=== PATIENT | female | born 1985 | race African-American/Black ===

== ENCOUNTER 2016-09-24 08:26 | Emergency (ER) | payer MEDICAID, OTHER ==
[2016-09-24] MEDS ORDERED: NS 1000 ML 1,000 ML IV ONE ×2 (08:35→09:42)
[2016-09-24] MEDS ORDERED: ZOFRAN INJ 4 MG VIAL IVP ONE (08:35)
[2016-09-24] MEDS ORDERED: NS 1000 ML 1,000 ML ONE ×2 (08:36→09:42)
[2016-09-24 08:37] VITALS: BP 136/83; BMI 22.1
[2016-09-24] MEDS ORDERED: ZOFRAN INJ 4 MG VIAL ONE (08:38)
--- NOTE | 2016-09-24 08:39 | DR.NAUSEAF ---
HPI - Time Seen Time seen: 08:35 - Primary Care Physician Primary Care Physician: AMY - Complaints Chief Complaint Doctors Comments: Patient reports that her child had similar symptoms few days ago. Patients LMP 07/10/16. Patient states that two days ago had cough,chills, headache. Yesterday had three diarrheal stools. associated with vomiting. Temp low grade. Chief Complaint:: PT. C/O N/V/D X 2 DAYS. PT. IS 14 WEEKS AND IS UNDER THE CARE OF DR. REYES. - Source History Provided: Patient - Mode of Arrival Mode of Arrival: Ambulatory - Timing Onset of Chief Complaint: 09/22/16 PMH - PMH Past Medical History: No Past Medical History: Anemia Past Surgical History: Yes Surgical History: Cholecystectomy - Family History History of Family Medical Conditions: No - Social History Does patient currently use any type of tobacco product: No Have you used tobacco products in the last 12 months: No Type of Tobacco Use: None Does any household member use tobacco: No Alcohol Use: None Do you use any recreational Drugs:: No Lives With: Family Lives Where: Home - infectious screening In the last 2 months have you had wt loss of >10#?: NO Have you had fever, night sweats or hemotysis?: No Have you traveled outside the country in the last 6 months?: No Isolation: Standard ROS - Review of Systems Constitutional: No Symptoms Reported Eyes: No Symptoms Reported ENTM: No Symptoms Reported Respiratoy: No Symptoms Reported Cardiovascular: No Symptoms Reported Gastrointestinal/Abdominal: Diarrhea, Nausea, Vomiting Genitourinary: No Symptoms Reported Neurological: No Symptoms Reported Musculoskeletal: No Symptoms Reported Integumentary: No Symptoms Reported Hematologic/Lymphatic: No Symptoms Reported Endocrine: No Symptoms Reported Psychiatric: No Symptoms Reported All Other Systems: Reviewed and Negative PE - Vital Signs Vitals: Temperature 97.8 F Pulse Rate 123 Respiratory Rate 20 Blood Pressure [Right Arm] 121/78 Blood Pressure [Left Arm] 127/75 Blood Pressure [Standing] 132/86 Blood Pressure [Sitting] 123/82 Blood Pressure [Lying] 127/83 Blood Pressure 136/83 O2 Sat by Pulse Oximetry 98 - General Limitations: No Limitations General Appearance: Alert - Head Head Exam: Normal Inspection, Atraumatic - Eyes Eye exam: Normal Appearance, PERRL, EOMI - ENT ENT Exam: Normal Exam - Neck Neck Exam: Normal Inspection, Full ROM - Chest Chest Inspection: Normal Inspection - Respiratory Respiratory Exam: Normal Lung Sounds Bilat Respiratory Exam: Bilateral Clear to Auscultation - Cardiovascular Cardiovascular Exam: Regular Rate, Normal Rhythm - Abdominal Exam Abdominal Exam: Distention - Rectal Rectal Exam: Deferred - External Exam: Female: Deferred : Speculum Exam (Female): Deferred : Bimanual Exam (female): Deferred - Extremities Extremities Exam: Normal Inspection. negative: Normal Capillary Refill - Back Back Exam: Normal Inspection - Neurologic Neurological Exam: Alert, Oriented X3, CN II-XII Intact - Psychiatric Psychiatric Exam: Normal Affect - Skin Skin Exam: Warm, Dry, Intact Course - Reevaluation 1st: Improved ROR - Labs Reviewed Laboratory Results Reviewed?: Yes (Strep negative, Influenze pending) Result Diagrams: 09/24/16 08:45 09/24/16 08:45 Laboratory: WBC 7.0 X10^3/uL (3.6-10.0) 09/24/16 08:45 RBC 4.71 X10^6/uL (3.5-5.4) 09/24/16 08:45 Hgb 14.3 g/dL (12.0-16.0) 09/24/16 08:45 Hct 40.6 % (36.0-47.0) 09/24/16 08:45 MCV 86.0 fL (80.0-100.0) 09/24/16 08:45 MCH 30.3 pg (27.0-34.0) 09/24/16 08:45 MCHC 35.3 g/dL (33.0-35.0) H 09/24/16 08:45 RDW 12.2 % (11.6-16.5) 09/24/16 08:45 Plt Count 250 X10^3/uL (150.0-450.0) 09/24/16 08:45 MPV 7.3 fL (7.4-11.0) L 09/24/16 08:45 Neut % 74.1 % (42.0-75.0) 09/24/16 08:45 Lymph % 19.3 % (21.0-51.0) L 09/24/16 08:45 Carbon % 5.5 % (0.0-13.0) 09/24/16 08:45 Eos % 0.4 % (0.9-2.9) L 09/24/16 08:45 Baso % 0.7 % (0.2-1.0) 09/24/16 08:45 Neut # 5.2 x10^3/uL (2.2-4.8) H 09/24/16 08:45 Lymph # 1.4 X10^3/uL (1.3-2.9) 09/24/16 08:45 Carbon # 0.4 x10^3/uL (0.3-0.8) 09/24/16 08:45 Eos # 0.0 x10^3/uL (0.0-0.2) 09/24/16 08:45 Baso # 0.0 X10^3/uL (0.0-0.1) 09/24/16 08:45 Absolute Nucleated RBC 0.0 /100WBC 09/24/16 08:45 Sodium 141 mmol/L (136-145) 09/24/16 08:45 Corrected Sodium TNP 09/24/16 08:45 Potassium 3.6 mmol/L (3.5-5.1) 09/24/16 08:45 Chloride 103 mmol/L (98-107) 09/24/16 08:45 Carbon Dioxide 24.6 mmol/L (21-32) 09/24/16 08:45 BUN 7 mg/dL (7-18) 09/24/16 08:45 Creatinine 0.68 mg/dL (0.55-1.02) 09/24/16 08:45 Est GFR (MDRD) Af Amer > 60 (>60) 09/24/16 08:45 Est GFR (MDRD) Non-Af > 60 (>60) 09/24/16 08:45 Glucose 92 mg/dL (65-99) 09/24/16 08:45 Calcium 9.1 mg/dL (8.5-10.1) 09/24/16 08:45 Corrected Calcium TNP 09/24/16 08:45 Total Bilirubin 0.40 mg/dL (0.2-1.0) 09/24/16 08:45 AST 34 Units/L (15-37) 09/24/16 08:45 ALT 48 Units/L (12-78) 09/24/16 08:45 Alkaline Phosphatase 46 Units/L (46-116) 09/24/16 08:45 Total Protein 7.8 g/dL (6.4-8.2) 09/24/16 08:45 Albumin 3.7 g/dL (3.4-5.0) 09/24/16 08:45 Globulin 4.1 g/dL (2.5-4.5) 09/24/16 08:45 Albumin/Globulin Ratio 0.9 Ratio (1.1-2.1) L 09/24/16 08:45 Streptococcus Screen Negative (NEGATIVE) 09/24/16 08:52 - Diagnosis Discharge Problem: Gastroenteritis Upper respiratory infection Qualifiers: URI type: unspecified viral URI Qualified Code(s): J06.9 - Acute upper respiratory infection, unspecified; B97.89 - Other viral agents as the cause of diseases classified elsewhere Qualifiers: Weeks of gestation: 12 weeks Qualified Code(s): Z3A.12 - 12 weeks gestation of - Discharge Plan Condition: Stable - Follow ups/Referrals Follow ups/Referrals: NFD,None [Primary Care Provider] - 3 days - Instructions
[2016-09-24 08:55] LABS: BASOPHILS % (AUTO) 0.7 % (0.2-1.0); EOSINOPHILS % (AUTO) 0.4 % (0.9-2.9); HEMATOCRIT 40.6 % (36.0-47.0); HEMOGLOBIN 14.3 g/dL (12.0-16.0); LYMPHOCYTES # (AUTO) 1.4 X10^3/uL (1.3-2.9); LYMPHOCYTES % (AUTO) 19.3 % (21.0-51.0); MEAN CORPUSCULAR HEMOGLOBIN 30.3 pg (27.0-34.0); MEAN CORPUSCULAR HGB CONC 35.3 g/dL (33.0-35.0); MEAN PLATELET VOLUME 7.3 fL (7.4-11.0); MONOCYTES # (AUTO) 0.4 x10^3/uL (0.3-0.8); MONOCYTES % (AUTO) 5.5 % (0.0-13.0); NEUTROPHILS # (AUTO) 5.2 x10^3/uL (2.2-4.8); NEUTROPHILS % (AUTO) 74.1 % (42.0-75.0); PLATELET COUNT 250 X10^3/uL (150.0-450.0); RED BLOOD COUNT 4.71 X10^6/uL (3.5-5.4); RED CELL DISTRIBUTION WIDTH 12.2 % (11.6-16.5)
[2016-09-24 09:11] LABS: ALANINE AMINOTRANSFERASE 48 Units/L (12-78); ALBUMIN 3.7 g/dL (3.4-5.0); ALKALINE PHOSPHATASE 46 Units/L (46-116); ASPARTATE AMINO TRANSFERASE 34 Units/L (15-37); BLOOD UREA NITROGEN 7 mg/dL (7-18); CALCIUM 9.1 mg/dL (8.5-10.1); CARBON DIOXIDE 24.6 mmol/L (21-32); CHLORIDE 103 mmol/L (98-107); CREATININE 0.68 mg/dL (0.55-1.02); GLUCOSE 92 mg/dL (65-99); SODIUM 141 mmol/L (136-145); TOTAL PROTEIN 7.8 g/dL (6.4-8.2); eGFR BLACK RACES > 60 (>60); eGFR NON BLACK RACES > 60 (>60)
== END 2016-09-24 10:56 | disposition home or self-care (01) ==
LOC: ER 08:32
DX: K52.89 Other specified noninfective gastroenteritis and colitis (principal); J06.9 Acute upper respiratory infection, unspecified; B97.89 Other viral agents as the cause of diseases classified elsewhere; Z3A.12 12 weeks gestation of pregnancy
CPT/HCPCS: 36415; 80053; 85025; 87070; 87502; 87503; 87880; 96365; 96367; 96374; 99283; A4222; J2405

== ENCOUNTER 2016-11-17 12:12 | Emergency (ER) | payer OTHER ==
[2016-11-17 12:16] VITALS: BMI 20.9
--- NOTE | 2016-11-17 12:27 | DR.PREG ---
HPI - PCP Primary Care Physician: AMY - Chief Complaint Chief Complaint:: PT. STATES SHE THINKS SHE IS HAVING CONTRACTIONS. PT. 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 - Nurses Notes Reviewed Nurses Notes Review: Yes - Source History Provided: Patient - Mode of Arrival Mode of Arrival: Wheelchair - Timing Onset of Chief Complaint: 11/17/16 PMH - PMH Past Medical History: Yes Past Medical History: Anemia Past Surgical History: Yes Surgical History: Cholecystectomy - Family History History of Family Medical Conditions: No - Social History Does patient currently use any type of tobacco product: No Have you used tobacco products in the last 12 months: No Type of Tobacco Use: None Does any household member use tobacco: No Alcohol Use: None Do you use any recreational Drugs:: No Lives With: Significant Other Lives Where: Home - infectious screening In the last 2 months have you had wt loss of >10#?: NO Have you had fever, night sweats or hemotysis?: No Have you traveled outside the country in the last 6 months?: No Isolation: Standard PE - Vital Signs Vitals: Temperature 97.6 F Pulse Rate 116 Respiratory Rate 24 Blood Pressure [Right Arm] 121/78 Blood Pressure [Left Arm] 127/75 Blood Pressure [Standing] 132/86 Blood Pressure [Sitting] 123/82 Blood Pressure [Lying] 127/83 Blood Pressure 142/88 O2 Sat by Pulse Oximetry 98 ROR - Labs Reviewed Result Diagrams: 11/17/16 12:35 11/17/16 12:35 Laboratory: WBC 6.8 X10^3/uL (3.6-10.0) 11/17/16 12:35 RBC 4.08 X10^6/uL (3.5-5.4) 11/17/16 12:35 Hgb 12.3 g/dL (12.0-16.0) 11/17/16 12:35 Hct 35.4 % (36.0-47.0) L 11/17/16 12:35 MCV 86.9 fL (80.0-100.0) 11/17/16 12:35 MCH 30.2 pg (27.0-34.0) 11/17/16 12:35 MCHC 34.7 g/dL (33.0-35.0) 11/17/16 12:35 RDW 12.5 % (11.6-16.5) 11/17/16 12:35 Plt Count 220 X10^3/uL (150.0-450.0) 11/17/16 12:35 MPV 7.9 fL (7.4-11.0) 11/17/16 12:35 Neut % 60.0 % (42.0-75.0) 11/17/16 12:35 Lymph % 31.8 % (21.0-51.0) 11/17/16 12:35 [place] % 6.0 % (0.0-13.0) 11/17/16 12:35 Eos % 1.8 % (0.9-2.9) 11/17/16 12:35 Baso % 0.4 % (0.2-1.0) 11/17/16 12:35 Neut # 4.1 x10^3/uL (2.2-4.8) 11/17/16 12:35 Lymph # 2.2 X10^3/uL (1.3-2.9) 11/17/16 12:35 [place] # 0.4 x10^3/uL (0.3-0.8) 11/17/16 12:35 Eos # 0.1 x10^3/uL (0.0-0.2) 11/17/16 12:35 Baso # 0.0 X10^3/uL (0.0-0.1) 11/17/16 12:35 Absolute Nucleated RBC 0.1 /100WBC 11/17/16 12:35 Sodium 138 mmol/L (136-145) 11/17/16 12:35 Corrected Sodium TNP 11/17/16 12:35 Potassium 3.5 mmol/L (3.5-5.1) 11/17/16 12:35 Chloride 103 mmol/L (98-107) 11/17/16 12:35 Carbon Dioxide 25.4 mmol/L (21-32) 11/17/16 12:35 BUN 7 mg/dL (7-18) 11/17/16 12:35 Creatinine 0.65 mg/dL (0.55-1.02) 11/17/16 12:35 Est GFR (MDRD) Af Amer > 60 (>60) 11/17/16 12:35 Est GFR (MDRD) Non-Af > 60 (>60) 11/17/16 12:35 Glucose 92 mg/dL (65-99) 11/17/16 12:35 Calcium 9.1 mg/dL (8.5-10.1) 11/17/16 12:35 Corrected Calcium 9.8 mg/dL (8.5-10.1) 11/17/16 12:35 Total Bilirubin 0.20 mg/dL (0.2-1.0) 11/17/16 12:35 AST 18 Units/L (15-37) 11/17/16 12:35 ALT 24 Units/L (12-78) 11/17/16 12:35 Alkaline Phosphatase 50 Units/L (46-116) 11/17/16 12:35 Total Protein 7.1 g/dL (6.4-8.2) 11/17/16 12:35 Albumin 3.1 g/dL (3.4-5.0) L 11/17/16 12:35 Globulin 4.0 g/dL (2.5-4.5) 11/17/16 12:35 Albumin/Globulin Ratio 0.8 Ratio (1.1-2.1) L 11/17/16 12:35 HCG, Quant 022773 mIU/mL (0-6) H 11/17/16 12:35 Specimen Type Clean catch urine 11/17/16 12:35 Urine Color Yellow (YELLOW) 11/17/16 12:35 Urine Appearance Slightly hazy (CLEAR) 11/17/16 12:35 Urine pH 8.0 (5.0 - 8.0) 11/17/16 12:35 Ur Specific [place] 1.010 (1.000-1.030) 11/17/16 12:35 Urine Protein Negative (NEGATIVE) 11/17/16 12:35 Urine Glucose (UA) Negative (NEGATIVE) 11/17/16 12:35 Urine Ketones Negative (NEGATIVE) 11/17/16 12:35 Urine Occult Blood Negative (NEGATIVE) 11/17/16 12:35 Urine Nitrite Negative (NEGATIVE) 11/17/16 12:35 Urine Bilirubin Negative (NEGATIVE) 11/17/16 12:35 Urine Urobilinogen Normal (NORMAL) 11/17/16 12:35 Ur Leukocyte Esterase 1+ (NEGATIVE) 11/17/16 12:35 Blood Type O POSITIVE 11/17/16 12:35 - Discharge Plan Condition: Stable - Follow ups/Referrals Follow ups/Referrals: REGGIE REYES [Primary Care Provider] - 11/19/16 - Instructions Instructions: Abdominal Pain During , [id number], Pelvic Rest Additional Instructions: RETURN TO ED IF WORSE. GLYCERINE SUPP TIMES ONE ONLY.
[2016-11-17 12:48] LABS: BASOPHILS % (AUTO) 0.4 % (0.2-1.0); EOSINOPHILS # (AUTO) 0.1 x10^3/uL (0.0-0.2); EOSINOPHILS % (AUTO) 1.8 % (0.9-2.9); HEMATOCRIT 35.4 % (36.0-47.0); HEMOGLOBIN 12.3 g/dL (12.0-16.0); LYMPHOCYTES # (AUTO) 2.2 X10^3/uL (1.3-2.9); LYMPHOCYTES % (AUTO) 31.8 % (21.0-51.0); MEAN CORPUSCULAR HEMOGLOBIN 30.2 pg (27.0-34.0); MEAN CORPUSCULAR HGB CONC 34.7 g/dL (33.0-35.0); MEAN CORPUSCULAR VOLUME 86.9 fL (80.0-100.0); MEAN PLATELET VOLUME 7.9 fL (7.4-11.0); MONOCYTES # (AUTO) 0.4 x10^3/uL (0.3-0.8); NEUTROPHILS # (AUTO) 4.1 x10^3/uL (2.2-4.8); PLATELET COUNT 220 X10^3/uL (150.0-450.0); RED BLOOD COUNT 4.08 X10^6/uL (3.5-5.4); RED CELL DISTRIBUTION WIDTH 12.5 % (11.6-16.5); WHITE BLOOD COUNT 6.8 X10^3/uL (3.6-10.0)
[2016-11-17 12:57] LABS: ALANINE AMINOTRANSFERASE 24 Units/L (12-78); ALBUMIN 3.1 g/dL (3.4-5.0); ALKALINE PHOSPHATASE 50 Units/L (46-116); ASPARTATE AMINO TRANSFERASE 18 Units/L (15-37); BLOOD UREA NITROGEN 7 mg/dL (7-18); CALCIUM 9.1 mg/dL (8.5-10.1); CARBON DIOXIDE 25.4 mmol/L (21-32); CHLORIDE 103 mmol/L (98-107); COR CA(FOR HYPOALB) 9.8 mg/dL (8.5-10.1); CREATININE 0.65 mg/dL (0.55-1.02); GLUCOSE 92 mg/dL (65-99); SODIUM 138 mmol/L (136-145); TOTAL PROTEIN 7.1 g/dL (6.4-8.2); eGFR BLACK RACES > 60 (>60); eGFR NON BLACK RACES > 60 (>60)
[2016-11-17 13:06] LABS: APPEARANCE,URINE SLIGHTLY HAZY (CLEAR); BILIRUBIN,URINE NEGATIVE (NEGATIVE); BLOOD/HEMOGLOBIN,URINE NEGATIVE (NEGATIVE); COLOR,URINE YELLOW (YELLOW); GLUCOSE, URINE NEGATIVE (NEGATIVE); KETONES,URINE NEGATIVE (NEGATIVE); LEUKOCYTE ESTERASE ,URINE 1+ (NEGATIVE); NITRITES,URINE NEGATIVE (NEGATIVE); PROTEIN,URINE NEGATIVE (NEGATIVE); UROBILINOGEN,URINE NORMAL (NORMAL)
[2016-11-17 13:32] LABS: HCG,QUANTITATIVE 112458 mIU/mL (0-6)
--- NOTE | 2016-11-17 13:38 | US ---
HISTORY: Abdominal pain, contractions Study: OB ultrasound greater than 14 weeks Comparison: None for this gestation Technique: Multiple grayscale and color flow Doppler images of the pelvis were obtained with focused evaluation of the fetus. Findings: A single living intrauterine gestation is identified with heart tones of 157 beats per minute. A breech presentation is observed. The placenta is anterior. Amniotic fluid appears grossly normal. Detailed anatomic screening was not performed. [employer] reports visualization of the bladder, stomach, extremities, spine, four-chamber heart, three-vessel cord, and cord insertion. Value (cm) Estimated Gestational Age BPD 4.31 19 weeks 0 days HC 16.49 19 weeks 1 day AC 13.39 18 weeks 6 days FL 2.92 19 weeks 0 days Average age by ultrasound: 19 weeks 0 days GRETCHEN by ultrasound: 04/13/2017 Estimated weight: 266 g IMPRESSION: Single living intrauterine gestation measuring 19 weeks 0 days with heart rate 157 bpm as deta iled above. No sonographic abnormalities identified. Reported By:
[2016-11-17 13:59] LABS: BACTERIA,URINE 1+ /HPF (NEGATIVE); RBC,URINE RARE /HPF (NEGATIVE); SQUAMOUS EPITHELIAL CELL,UR MANY /HPF (NEGATIVE)
[2016-11-17 14:00] LABS: AMORPHOUS SEDIMENT,UR 2+ /HPF (NEGATIVE)
[2016-11-17 14:19] VITALS: BP 106/65
== END 2016-11-17 14:20 | disposition home or self-care (01) ==
LOC: ER 12:15
DX: R10.84 Generalized abdominal pain (principal); M54.5 Low back pain; Z3A.19 19 weeks gestation of pregnancy
CPT/HCPCS: 36415; 76815; 80053; 81001; 84702; 85025; 86900; 86901; 99283; 99284

== ENCOUNTER 2017-01-19 09:44 | Emergency (ER) | payer OTHER ==
[2017-01-19 09:56] VITALS: BMI 23.3
[2017-01-19 10:11] LABS: AMNISURE ROM TEST THERE IS A RUPTURE (NO RUPTURE)
[2017-01-19] MEDS ORDERED: AMPICILLIN VIAL 2 GM ONE ×2 (11:02→11:06)
[2017-01-19] MEDS ORDERED: CELESTONE SOLUSPAN ONE (11:06)
[2017-01-19] MEDS ORDERED: MAGNESIUM SULFATE 40 GM IV 40 GM/1,000 ML BAG IV ONE (11:07)
[2017-01-19] MEDS ORDERED: LR 1000 ML IV 1,000 ML IV ONE (11:07)
[2017-01-19] MEDS ORDERED: NS 50 ML IV + SPIKE MINIBAG* 50 ML IV ONE (11:07)
[2017-01-19] MEDS ORDERED: NS 1000 ML 2,000 ML ONE (11:12)
[2017-01-19] MEDS ORDERED: CELESTONE SOLUSPAN IM ONE ×2 (11:12→11:16)
[2017-01-19] MEDS ORDERED: MAGNESIUM SULFATE 40 GM IV 40 GM/1,000 ML BAG IV PRN (11:17)
[2017-01-19] MEDS ORDERED: AMPICILLIN IV SCH (11:19)
[2017-01-19] MEDS ORDERED: NS IV SCH (11:19)
[2017-01-19] MEDS ORDERED: ZOFRAN INJ 4 MG VIAL ONE (11:34)
[2017-01-19 11:59] VITALS: BP 121/68
== END 2017-01-19 11:35 | disposition short-term general hospital (02) ==
LOC: ER 09:44
DX: O42 Premature rupture of membranes (principal)
CPT/HCPCS: 84112; 96365; 96367; 96372; 96374; 96375; 99285; A4222; J0290; J2405; J3475; J7120

== ENCOUNTER 2018-05-01 12:14 | Inpatient (IN) ==
[2018-05-01] MEDS ORDERED: LR 1000 ML IV 1,000 ML IV SCH (13:00)
[2018-05-01] MEDS ORDERED: COLCRYS TAB 0.6 MG PO SCH (13:39)
[2018-05-01] MEDS ORDERED: PHENERGAN INJ 25 MG IVP ONE (14:05)
[2018-05-01 15:27] VITALS: BMI 22.2
[2018-05-01 15:29] LABS: BASOPHILS % (AUTO) 0.5 % (0.2-1.0); EOSINOPHILS % (AUTO) 0.5 % (0.9-2.9); HEMATOCRIT 42.7 % (36.0-47.0); LYMPHOCYTES # (AUTO) 1.6 X10^3/uL (1.3-2.9); LYMPHOCYTES % (AUTO) 30.9 % (21.0-51.0); MEAN CORPUSCULAR HEMOGLOBIN 31.3 pg (27.0-34.0); MEAN CORPUSCULAR VOLUME 89.3 fL (80.0-100.0); MEAN PLATELET VOLUME 8.2 fL (7.4-11.0); MONOCYTES # (AUTO) 0.4 x10^3/uL (0.3-0.8); MONOCYTES % (AUTO) 7.3 % (0.0-13.0); NEUTROPHILS # (AUTO) 3.2 x10^3/uL (2.2-4.8); NEUTROPHILS % (AUTO) 60.8 % (42.0-75.0); PLATELET COUNT 229 X10^3/uL (150.0-450.0); RED BLOOD COUNT 4.78 X10^6/uL (3.5-5.4); WHITE BLOOD COUNT 5.3 X10^3/uL (3.6-10.0)
[2018-05-01 15:31] LABS: ALANINE AMINOTRANSFERASE 20 Units/L (12-78); ALBUMIN 4.2 g/dL (3.4-5.0); ALKALINE PHOSPHATASE 57 Units/L (46-116); ASPARTATE AMINO TRANSFERASE 11 Units/L (15-37); BLOOD UREA NITROGEN 7 mg/dL (7-18); CALCIUM 9.1 mg/dL (8.5-10.1); CARBON DIOXIDE 28.3 mmol/L (21-32); CHLORIDE 104 mmol/L (98-107); CKMB % 1.4 % (<4); CREATINE KINASE 71 Units/L (26-192); CREATINE KINASE MB < 1.0 ng/mL (0-4.0); CREATININE 0.77 mg/dL (0.55-1.02); SODIUM 140 mmol/L (136-145); TOTAL PROTEIN 8.2 g/dL (6.4-8.2); TROPONIN I < 0.02 ng/mL (0-1.5); eGFR NON BLACK RACES > 60 (>60)
--- NOTE | 2018-05-01 16:03 | RAD ---
Exam: Chest, portable History: 32-year-old female with possible pericarditis Comparison: Previous chest radiograph from 10/28/2012 Findings: Heart size and pulmonary vasculature are normal. Lungs are clear with no infiltrate or significant effusion on either side. Visualized aspect of the bony thorax is unremarkable as well. Impression: No acute cardiopulmonary abnormality is seen on this exam Reported By:
[2018-05-01 16:10] LABS: ERYTHROCYTE SEDIMENTATION RATE 8 MM/HOUR (0-20)
[2018-05-01] MEDS: NS 1000 ML 1,000 ML IV SCH (16:45)
[2018-05-01] MEDS: VANCOMYCIN HCL 500 MG VIAL 750 MG in NS 250 ML IV 250 ML IV SCH (16:45)
[2018-05-01] MEDS: ROCEPHIN VIAL 2 GRAMS IVP SCH (16:45)
[2018-05-01] MEDS ORDERED: PHARMACY CONSULT - VANCOMYCIN XX SCH (17:00)
[2018-05-01] MEDS: ZOFRAN INJ 4 MG VIAL IVP PRN (18:20)
[2018-05-01] MEDS: DILAUDID INJ IVP PRN (22:29)
[2018-05-02] MEDS: VANCOMYCIN HCL 500 MG VIAL 750 MG in NS 250 ML IV 250 ML IV SCH ×3 (00:54→17:36)
[2018-05-02] MEDS: ZOFRAN INJ 4 MG VIAL IVP PRN ×2 (01:21→19:03)
[2018-05-02] MEDS: NS 1000 ML 1,000 ML IV SCH ×3 (05:57→20:47)
[2018-05-02 06:14] LABS: BASOPHILS % (AUTO) 0.5 % (0.2-1.0); EOSINOPHILS # (AUTO) 0.1 x10^3/uL (0.0-0.2); EOSINOPHILS % (AUTO) 2.2 % (0.9-2.9); HEMATOCRIT 36.4 % (36.0-47.0); LYMPHOCYTES # (AUTO) 2.3 X10^3/uL (1.3-2.9); LYMPHOCYTES % (AUTO) 40.9 % (21.0-51.0); MEAN CORPUSCULAR HGB CONC 34.8 g/dL (33.0-35.0); MEAN CORPUSCULAR VOLUME 89.1 fL (80.0-100.0); MEAN PLATELET VOLUME 8.4 fL (7.4-11.0); MONOCYTES # (AUTO) 0.5 x10^3/uL (0.3-0.8); MONOCYTES % (AUTO) 8.9 % (0.0-13.0); NEUTROPHILS # (AUTO) 2.7 x10^3/uL (2.2-4.8); NEUTROPHILS % (AUTO) 47.5 % (42.0-75.0); PLATELET COUNT 208 X10^3/uL (150.0-450.0); RED BLOOD COUNT 4.08 X10^6/uL (3.5-5.4); RED CELL DISTRIBUTION WIDTH 12.9 % (11.6-16.5); WHITE BLOOD COUNT 5.6 X10^3/uL (3.6-10.0)
[2018-05-02 06:31] LABS: HEMOGLOBIN 12.7 g/dL (12.0-16.0)
[2018-05-02 06:41] LABS: ALANINE AMINOTRANSFERASE 16 Units/L (12-78); ALBUMIN 3.1 g/dL (3.4-5.0); ALKALINE PHOSPHATASE 44 Units/L (46-116); ASPARTATE AMINO TRANSFERASE 10 Units/L (15-37); BLOOD UREA NITROGEN 7 mg/dL (7-18); CALCIUM 7.7 mg/dL (8.5-10.1); CARBON DIOXIDE 23.7 mmol/L (21-32); CHLORIDE 108 mmol/L (98-107); COR CA(FOR HYPOALB) 8.4 mg/dL (8.5-10.1); CREATININE 0.72 mg/dL (0.55-1.02); SODIUM 140 mmol/L (136-145); TOTAL PROTEIN 6.1 g/dL (6.4-8.2); eGFR NON BLACK RACES > 60 (>60)
[2018-05-02] MEDS: ROCEPHIN VIAL 2 GRAMS IVP SCH (09:16)
[2018-05-02 17:52] LABS: CREATININE 0.72 mg/dL (0.55-1.02)
[2018-05-02 17:56] LABS: VANCOMYCIN,TROUGH 8.3 ug/mL (15-20)
[2018-05-02] MEDS: DILAUDID INJ IVP PRN (19:03)
--- NOTE | 2018-05-02 19:42 | PCM.PROG ---
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 LOW GRADE FEVER THIS AM. NO CHEST PAIN. STILL HAVING BACK PAIN. LUNGS CLEAR NO ACUTE RESPIRATORY DISTRESS. RRR WITHOUT MURMUR. NEURO NON FOCAL AND NO EDEMA. WBC 5.6 ALBUMEN 3.1 HEMOGLUBIN 12.7 POTASSIUM 3.6. WILL CONTNUE TO MONITOR AND CONSIDER FURTHER EVALUATION THE AORTIC VALVE. Past Medical Family Social History Past Med/Fam/Surg Hx: No changes since H&P Allergies: Allergies No Known Allergies [NKA] Allergy (Unknown, Verified 05/01/18 13:39) Review of Systems ROS: No change since H&P Vital Signs and I&O's Vital Signs: Temperature 99.2 F Pulse Rate 79 Respiratory Rate 13 Blood Pressure [Right Arm] 121/68 Blood Pressure [Left Arm] 127/75 Blood Pressure [Standing] 132/86 Blood Pressure [Sitting] 123/82 Blood Pressure [Lying] 127/83 Blood Pressure 138/82 O2 Sat by Pulse Oximetry 100 Intake and Output: Intake & Output 04/29/18 04/30/18 05/01/18 05/02/18 23:59 23:59 23:59 23:59 Intake Total 1954 3000 / 3000 Balance 1954 3000 / 3000 Physical Exam Oriented: Time, Person and Place Eyes: Normal Ear: Normal Nose: Normal Throat: Normal Respiratory: Rhonchi Cardiovascular: Normal : Normal Auscultation: Bowel Sounds: Normal Palpation: Normal Tenderness: Normal Skin: Normal Musculoskeletal: Back:Thoracic Mood Description: Anxious Affect: Anxious Speech Pattern: Clear and Appropriate Laboratory and Diagnostics Result Diagrams: 05/03/18 05:14 05/03/18 05:14 Labs: Laboratory WBC 5.6 X10^3/uL (3.6-10.0) 05/02/18 04:31 RBC 4.08 X10^6/uL (3.5-5.4) 05/02/18 04:31 Hgb 12.7 g/dL (12.0-16.0) D 05/02/18 04:31 Hct 36.4 % (36.0-47.0) 05/02/18 04:31 MCV 89.1 fL (80.0-100.0) 05/02/18 04:31 MCH 31.0 pg (27.0-34.0) 05/02/18 04:31 MCHC 34.8 g/dL (33.0-35.0) 05/02/18 04:31 RDW 12.9 % (11.6-16.5) 05/02/18 04:31 Plt Count 208 X10^3/uL (150.0-450.0) 05/02/18 04:31 MPV 8.4 fL (7.4-11.0) 05/02/18 04:31 Neut % (Auto) 47.5 % (42.0-75.0) 05/02/18 04:31 Lymph % (Auto) 40.9 % (21.0-51.0) 05/02/18 04:31 [place] % (Auto) 8.9 % (0.0-13.0) 05/02/18 04:31 Eos % (Auto) 2.2 % (0.9-2.9) 05/02/18 04:31 Baso % (Auto) 0.5 % (0.2-1.0) 05/02/18 04:31 Neut # (Auto) 2.7 x10^3/uL (2.2-4.8) 05/02/18 04:31 Lymph # (Auto) 2.3 X10^3/uL (1.3-2.9) 05/02/18 04:31 [place] # (Auto) 0.5 x10^3/uL (0.3-0.8) 05/02/18 04:31 Eos # (Auto) 0.1 x10^3/uL (0.0-0.2) 05/02/18 04:31 Baso # (Auto) 0.0 X10^3/uL (0.0-0.1) 05/02/18 04:31 Absolute Nucleated RBC 0.6 /100WBC 05/02/18 04:31 ESR 8 MM/HOUR (0-20) 05/01/18 14:48 Sodium 140 mmol/L (136-145) 05/02/18 04:31 Corrected Sodium TNP 05/02/18 04:31 Potassium 3.6 mmol/L (3.5-5.1) 05/02/18 04:31 Chloride 108 mmol/L (98-107) H 05/02/18 04:31 Carbon Dioxide 23.7 mmol/L (21-32) 05/02/18 04:31 BUN 7 mg/dL (7-18) 05/02/18 04:31 Creatinine 0.72 mg/dL (0.55-1.02) 05/02/18 16:20 Est GFR (MDRD) Af Amer > 60 (>60) 05/02/18 04:31 Est GFR (MDRD) Non-Af > 60 (>60) 05/02/18 04:31 Glucose 90 mg/dL (65-99) 05/02/18 04:31 Lactic Acid 0.6 mmol/L (0.4-2.0) 05/01/18 14:48 Calcium 7.7 mg/dL (8.5-10.1) L 05/02/18 04:31 Corrected Calcium 8.4 mg/dL (8.5-10.1) L 05/02/18 04:31 Total Bilirubin 0.20 mg/dL (0.2-1.0) 05/02/18 04:31 AST 10 Units/L (15-37) L 05/02/18 04:31 ALT 16 Units/L (12-78) 05/02/18 04:31 Alkaline Phosphatase 44 Units/L (46-116) L 05/02/18 04:31 Creatine Kinase 71 Units/L (26-192) 05/01/18 14:48 CK-MB (CK-2) < 1.0 ng/mL (0-4.0) 05/01/18 14:48 CK/CKMB % Calc 1.4 % (<4) 05/01/18 14:48 Troponin I < 0.02 ng/mL (0-1.5) 05/01/18 14:48 C-Reactive Protein 0.80 mg/L (0-3.0) 05/01/18 14:48 Total Protein 6.1 g/dL (6.4-8.2) L 05/02/18 04:31 Albumin 3.1 g/dL (3.4-5.0) L 05/02/18 04:31 Globulin 3.0 g/dL (2.5-4.5) 05/02/18 04:31 Albumin/Globulin Ratio 1.0 Ratio (1.1-2.1) L 05/02/18 04:31 Vancomycin Trough 8.3 ug/mL (15-20) L 05/02/18 16:20 Random Vancomycin Cancelled 05/02/18 16:20 Plan (1) Chest pain: Status: Acute Plan: WILL CONTINUE TO MONITOR CHEST PAIN AND EVALUATE INDICATED. AT TIME OF EVALUATION THIS AM, PATIENT WAS NOT HAVING CHEST PAIN. (2) Vegetative endocarditis: Status: Acute Plan: ECHOCARDIOGRAM REPORT EF 53 ITH SEVERE AR. PATIENT WILL CONTINUE CURRENT ANTIBIOTICS. WILL CONSIDER FURTHER EVALUATION FOR VALVULAR SURGERY. (3) Back pain: Status: Acute Plan: PATIENT SAID BACK PAIN IMPROVING WITH MEDICATION. FURTHER EVALUATION IS PENDING.
[2018-05-02 20:10] LABS: CREATINE KINASE 69 Units/L (26-192); CREATINE KINASE MB < 1.0 ng/mL (0-4.0); TROPONIN I < 0.02 ng/mL (0-1.5)
[2018-05-02 20:15] LABS: CKMB % 1.5 % (<4)
[2018-05-02] MEDS ORDERED: PHARMACY CONSULT - VANCOMYCIN XX SCH (23:00)
[2018-05-03] MEDS: VANCOMYCIN 1 GRAM PREMIX (ADDVANTAGE) 250 ML IV SCH ×2 (01:26→05:43)
[2018-05-03 06:09] LABS: BASOPHILS % (AUTO) 0.4 % (0.2-1.0); EOSINOPHILS # (AUTO) 0.1 x10^3/uL (0.0-0.2); EOSINOPHILS % (AUTO) 1.6 % (0.9-2.9); HEMATOCRIT 36.3 % (36.0-47.0); HEMOGLOBIN 12.6 g/dL (12.0-16.0); LYMPHOCYTES # (AUTO) 2.2 X10^3/uL (1.3-2.9); LYMPHOCYTES % (AUTO) 42.7 % (21.0-51.0); MEAN CORPUSCULAR HGB CONC 34.8 g/dL (33.0-35.0); MEAN CORPUSCULAR VOLUME 89.1 fL (80.0-100.0); MEAN PLATELET VOLUME 8.3 fL (7.4-11.0); MONOCYTES # (AUTO) 0.4 x10^3/uL (0.3-0.8); MONOCYTES % (AUTO) 8.5 % (0.0-13.0); NEUTROPHILS # (AUTO) 2.4 x10^3/uL (2.2-4.8); NEUTROPHILS % (AUTO) 46.8 % (42.0-75.0); PLATELET COUNT 189 X10^3/uL (150.0-450.0); RED BLOOD COUNT 4.08 X10^6/uL (3.5-5.4); RED CELL DISTRIBUTION WIDTH 12.8 % (11.6-16.5); WHITE BLOOD COUNT 5.1 X10^3/uL (3.6-10.0)
[2018-05-03 06:39] LABS: ALANINE AMINOTRANSFERASE 20 Units/L (12-78); ALBUMIN 2.8 g/dL (3.4-5.0); ALKALINE PHOSPHATASE 45 Units/L (46-116); ASPARTATE AMINO TRANSFERASE 14 Units/L (15-37); BLOOD UREA NITROGEN 4 mg/dL (7-18); CALCIUM 7.8 mg/dL (8.5-10.1); CARBON DIOXIDE 27.5 mmol/L (21-32); CHLORIDE 108 mmol/L (98-107); COR CA(FOR HYPOALB) 8.8 mg/dL (8.5-10.1); CREATININE 0.68 mg/dL (0.55-1.02); SODIUM 140 mmol/L (136-145); TOTAL PROTEIN 5.8 g/dL (6.4-8.2); eGFR NON BLACK RACES > 60 (>60)
[2018-05-03] MEDS: ROCEPHIN VIAL 2 GRAMS IVP SCH (09:33)
[2018-05-03] MEDS: NS 1000 ML 1,000 ML IV SCH (13:08)
[2018-05-03] MEDS: VANCOMYCIN HCL 1 GM VIAL 1 G in D5W 250 ML IV 250 ML IV SCH ×2 (13:08→22:00)
[2018-05-03] MEDS: ULTRAM PO PRN ×2 (17:20→22:10)
--- NOTE | 2018-05-03 18:10 | PCM.PROG ---
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 VANCOMYCIN AND ROCEPHIN CURRENTLY GIVEN DAILY. NO FEVER THIS AM. CHEST PAIN LAST EVENING. NO CHEST PAIN THIS AM BUT HAVE SORENESS LEFT UPPER C HEST WALL. STILL HAVING UPPER BACK PAIN. LUNGS CLEAR NO ACUTE RESPIRATORY DISTRESS. RRR WITHOUT MURMUR. NEURO NON FOCAL AND NO EDEMA. WBC 5.1 HEMOGLUBIN 12.6 POTASSIUM 3.5. WILL CONTNUE TO MONITOR AND CONSIDER FURTHER EVALUATION THE AORTIC VALVE. Past Medical Family Social History Past Med/Fam/Surg Hx: No changes since H&P Allergies: Allergies No Known Allergies [NKA] Allergy (Unknown, Verified 05/01/18 13:39) Review of Systems ROS: No change since H&P Vital Signs and I&O's Vital Signs: Temperature 98.7 F Pulse Rate 82 Respiratory Rate 19 Blood Pressure [Right Arm] 121/68 Blood Pressure [Left Arm] 127/75 Blood Pressure [Standing] 132/86 Blood Pressure [Sitting] 123/82 Blood Pressure [Lying] 127/83 Blood Pressure 164/99 O2 Sat by Pulse Oximetry 100 Intake and Output: Intake & Output 04/30/18 05/01/18 05/02/18 05/03/18 23:59 23:59 23:59 23:59 Intake Total 1954 / 3706 2211 / 221 Balance 1954 / 3706 221 / 221 Physical Exam Oriented: Time, Person and Place Eyes: Normal Ear: Normal Nose: Normal Throat: Normal Respiratory: Rhonchi Cardiovascular: Normal : Normal Auscultation: Bowel Sounds: Normal Tenderness: Normal Skin: Normal Musculoskeletal: Back:Thoracic Mood Description: Anxious Affect: Anxious Speech Pattern: Clear and Appropriate Laboratory and Diagnostics Result Diagrams: 05/03/18 05:14 05/03/18 05:14 Labs: 05/01/18 17:00 Blood Blood Culture - Preliminary 05/01/18 14:48 Blood Blood Culture - Preliminary 05/01/18 14:48 Blood Blood Culture - Preliminary Laboratory WBC 5.1 X10^3/uL (3.6-10.0) 05/03/18 05:14 RBC 4.08 X10^6/uL (3.5-5.4) 05/03/18 05:14 Hgb 12.6 g/dL (12.0-16.0) 05/03/18 05:14 Hct 36.3 % (36.0-47.0) 05/03/18 05:14 MCV 89.1 fL (80.0-100.0) 05/03/18 05:14 MCH 31.0 pg (27.0-34.0) 05/03/18 05:14 MCHC 34.8 g/dL (33.0-35.0) 05/03/18 05:14 RDW 12.8 % (11.6-16.5) 05/03/18 05:14 Plt Count 189 X10^3/uL (150.0-450.0) 05/03/18 05:14 MPV 8.3 fL (7.4-11.0) 05/03/18 05:14 Neut % (Auto) 46.8 % (42.0-75.0) 05/03/18 05:14 Lymph % (Auto) 42.7 % (21.0-51.0) 05/03/18 05:14 [place] % (Auto) 8.5 % (0.0-13.0) 05/03/18 05:14 Eos % (Auto) 1.6 % (0.9-2.9) 05/03/18 05:14 Baso % (Auto) 0.4 % (0.2-1.0) 05/03/18 05:14 Neut # (Auto) 2.4 x10^3/uL (2.2-4.8) 05/03/18 05:14 Lymph # (Auto) 2.2 X10^3/uL (1.3-2.9) 05/03/18 05:14 [place] # (Auto) 0.4 x10^3/uL (0.3-0.8) 05/03/18 05:14 Eos # (Auto) 0.1 x10^3/uL (0.0-0.2) 05/03/18 05:14 Baso # (Auto) 0.0 X10^3/uL (0.0-0.1) 05/03/18 05:14 Absolute Nucleated RBC 0.2 /100WBC 05/03/18 05:14 ESR 8 MM/HOUR (0-20) 05/01/18 14:48 Sodium 140 mmol/L (136-145) 05/03/18 05:14 Corrected Sodium TNP 05/03/18 05:14 Potassium 3.5 mmol/L (3.5-5.1) 05/03/18 05:14 Chloride 108 mmol/L (98-107) H 05/03/18 05:14 Carbon Dioxide 27.5 mmol/L (21-32) 05/03/18 05:14 BUN 4 mg/dL (7-18) L 05/03/18 05:14 Creatinine 0.68 mg/dL (0.55-1.02) 05/03/18 05:14 Est GFR (MDRD) Af Amer > 60 (>60) 05/03/18 05:14 Est GFR (MDRD) Non-Af > 60 (>60) 05/03/18 05:14 Glucose 106 mg/dL (65-99) H 05/03/18 05:14 Lactic Acid 0.6 mmol/L (0.4-2.0) 05/01/18 14:48 Calcium 7.8 mg/dL (8.5-10.1) L 05/03/18 05:14 Corrected Calcium 8.8 mg/dL (8.5-10.1) 05/03/18 05:14 Total Bilirubin 0.20 mg/dL (0.2-1.0) 05/03/18 05:14 AST 14 Units/L (15-37) L 05/03/18 05:14 ALT 20 Units/L (12-78) 05/03/18 05:14 Alkaline Phosphatase 45 Units/L (46-116) L 05/03/18 05:14 Creatine Kinase 69 Units/L (26-192) 05/02/18 19:39 CK-MB (CK-2) < 1.0 ng/mL (0-4.0) 05/02/18 19:39 CK/CKMB % Calc 1.5 % (<4) 05/02/18 19:39 Troponin I < 0.02 ng/mL (0-1.5) 05/02/18 19:39 C-Reactive Protein 0.80 mg/L (0-3.0) 05/01/18 14:48 Total Protein 5.8 g/dL (6.4-8.2) L 05/03/18 05:14 Albumin 2.8 g/dL (3.4-5.0) L 05/03/18 05:14 Globulin 3.0 g/dL (2.5-4.5) 05/03/18 05:14 Albumin/Globulin Ratio 0.9 Ratio (1.1-2.1) L 05/03/18 05:14 Vancomycin Trough 8.3 ug/mL (15-20) L 05/02/18 16:20 Random Vancomycin Cancelled 05/02/18 16:20 Plan (1) Chest pain: Status: Acute Plan: WILL CONTINUE TO MONITOR CHEST PAIN AND EVALUATE INDICATED. AT TIME OF EVALUATION THIS AM, PATIENT WAS NOT HAVING CHEST PAIN. (2) Vegetative endocarditis: Status: Acute Plan: ECHOCARDIOGRAM REPORT EF 53 ITH SEVERE AR. PATIENT WILL CONTINUE CURRENT ANTIBIOTICS. WILL CONSIDER FURTHER EVALUATION FOR VALVULAR SURGERY. (3) Back pain: Status: Acute Plan: PATIENT SAID BACK PAIN IMPROVING WITH MEDICATION. FURTHER EVALUATION IS PENDING.
[2018-05-03 18:59] LABS: CREATINE KINASE 67 Units/L (26-192); CREATINE KINASE MB < 1.0 ng/mL (0-4.0); TROPONIN I < 0.02 ng/mL (0-1.5)
[2018-05-03 19:00] LABS: CKMB % 1.5 % (<4)
[2018-05-03] MEDS ORDERED: PHARMACY COMMENT IV SCH (21:45)
[2018-05-03 21:48] LABS: CREATININE 0.71 mg/dL (0.55-1.02); VANCOMYCIN,TROUGH 10.8 ug/mL (15-20)
[2018-05-03] MEDS: ZOFRAN INJ 4 MG VIAL IVP PRN (22:15)
[2018-05-04] MEDS: NS 1000 ML 1,000 ML IV SCH ×4 (02:23→21:08)
[2018-05-04 06:10] LABS: ALANINE AMINOTRANSFERASE 19 Units/L (12-78); ALBUMIN 3.1 g/dL (3.4-5.0); ALKALINE PHOSPHATASE 45 Units/L (46-116); ASPARTATE AMINO TRANSFERASE 12 Units/L (15-37); BLOOD UREA NITROGEN 3 mg/dL (7-18); CALCIUM 8.1 mg/dL (8.5-10.1); CARBON DIOXIDE 25.8 mmol/L (21-32); CHLORIDE 107 mmol/L (98-107); CKMB % 1.6 % (<4); COR CA(FOR HYPOALB) 8.8 mg/dL (8.5-10.1); CREATINE KINASE 63 Units/L (26-192); CREATINE KINASE MB < 1.0 ng/mL (0-4.0); CREATININE 0.64 mg/dL (0.55-1.02); SODIUM 141 mmol/L (136-145); TOTAL PROTEIN 6.3 g/dL (6.4-8.2); TROPONIN I < 0.02 ng/mL (0-1.5); eGFR NON BLACK RACES > 60 (>60)
[2018-05-04] MEDS ORDERED: VANCOMYCIN HCL 500 MG VIAL ONE ×3 (06:15→20:32)
[2018-05-04] MEDS ORDERED: D5W 250 ML IV 250 ML IV ONE (06:15)
[2018-05-04] MEDS ORDERED: VANCOMYCIN HCL 1 GM VIAL ONE ×3 (06:16→20:32)
[2018-05-04] MEDS: VANCOMYCIN HCL 500 MG VIAL 250 MG, VANCOMYCIN HCL 1 GM VIAL 1 G in NS 250 ML IV 250 ML IV SCH ×3 (06:50→21:06)
[2018-05-04 06:52] LABS: BASOPHILS % (AUTO) 0.6 % (0.2-1.0); EOSINOPHILS # (AUTO) 0.2 x10^3/uL (0.0-0.2); EOSINOPHILS % (AUTO) 3.5 % (0.9-2.9); HEMATOCRIT 36.8 % (36.0-47.0); HEMOGLOBIN 12.8 g/dL (12.0-16.0); LYMPHOCYTES # (AUTO) 2.1 X10^3/uL (1.3-2.9); LYMPHOCYTES % (AUTO) 43.8 % (21.0-51.0); MEAN CORPUSCULAR HEMOGLOBIN 30.9 pg (27.0-34.0); MEAN CORPUSCULAR HGB CONC 34.7 g/dL (33.0-35.0); MEAN CORPUSCULAR VOLUME 89.1 fL (80.0-100.0); MEAN PLATELET VOLUME 8.6 fL (7.4-11.0); MONOCYTES # (AUTO) 0.4 x10^3/uL (0.3-0.8); MONOCYTES % (AUTO) 9.2 % (0.0-13.0); NEUTROPHILS # (AUTO) 2.1 x10^3/uL (2.2-4.8); NEUTROPHILS % (AUTO) 42.9 % (42.0-75.0); PLATELET COUNT 181 X10^3/uL (150.0-450.0); RED BLOOD COUNT 4.13 X10^6/uL (3.5-5.4); RED CELL DISTRIBUTION WIDTH 13.1 % (11.6-16.5); WHITE BLOOD COUNT 4.9 X10^3/uL (3.6-10.0)
--- NOTE | 2018-05-04 06:57 | RAD ---
HISTORY: Chest pain Study: Chest AP portable Comparison: 05/01/2018 Findings: The heart is within normal limits in size. The jazmín are normal. The lungs are well inflated and clear. No pleural effusions are identified. The bony thorax is unremarkable. IMPRESSION: No significant abnormality identified Reported By:
[2018-05-04] MEDS: ROCEPHIN VIAL 2 GRAMS IVP SCH (09:44)
[2018-05-04] MEDS ORDERED: NS 250 ML IV 250 ML IV ONE ×2 (14:28→20:32)
--- NOTE | 2018-05-04 15:42 | MRI ---
MRI thoracic spine without contrast Indication: Pericarditis concern for osteomyelitis of the upper thoracic spine Technique: Multiplanar, multi sequence imaging of the thoracic spine without IV contrast administration. Findings: There is no vertebral height loss or disc space loss within the thoracic spine. Lower cervical and upper lumbar spine are also within normal limits. No spondylolisthesis within the thoracic spine. At no level is there appreciable spinal canal stenosis. No epidural fluid collection is visualized. The thoracic cord demonstrates normal signal without evidence of atrophy or expansion. There is no abnormal fluid or fluid collection identified within the paraspinal soft tissues of the thoracic spine. Visualized thyroid gland is unremarkable. A portion of the heart is visualized and there is no definite pericardial fluid identified. The anterior pericardium is excluded from visualization. There is no pleural effusion. Impression: 1.No MR evidence to suggest ostial discitis or localizing fluid collection within the thoracic spine. 2. Vertebral body heights and disc spaces are preserved without evidence of spondylolisthesis or spinal canal stenosis. 3. No significant pericardial fluid/effusion is identified. Reported By:
[2018-05-04] MEDS: ULTRAM PO PRN (17:23)
[2018-05-05] MEDS ORDERED: PHARMACY COMMENT IV SCH (05:45)
[2018-05-05] MEDS: NS 1000 ML 1,000 ML IV SCH (05:51)
[2018-05-05 06:34] LABS: BASOPHILS % (AUTO) 0.4 % (0.2-1.0); EOSINOPHILS # (AUTO) 0.2 x10^3/uL (0.0-0.2); EOSINOPHILS % (AUTO) 3.6 % (0.9-2.9); HEMATOCRIT 38.6 % (36.0-47.0); HEMOGLOBIN 13.2 g/dL (12.0-16.0); LYMPHOCYTES # (AUTO) 2.1 X10^3/uL (1.3-2.9); LYMPHOCYTES % (AUTO) 41.4 % (21.0-51.0); MEAN CORPUSCULAR HEMOGLOBIN 30.6 pg (27.0-34.0); MEAN CORPUSCULAR HGB CONC 34.3 g/dL (33.0-35.0); MEAN CORPUSCULAR VOLUME 89.1 fL (80.0-100.0); MEAN PLATELET VOLUME 8.3 fL (7.4-11.0); MONOCYTES # (AUTO) 0.4 x10^3/uL (0.3-0.8); MONOCYTES % (AUTO) 8.7 % (0.0-13.0); NEUTROPHILS # (AUTO) 2.3 x10^3/uL (2.2-4.8); NEUTROPHILS % (AUTO) 45.9 % (42.0-75.0); PLATELET COUNT 207 X10^3/uL (150.0-450.0); RED BLOOD COUNT 4.33 X10^6/uL (3.5-5.4); RED CELL DISTRIBUTION WIDTH 12.9 % (11.6-16.5)
[2018-05-05 06:46] LABS: CREATININE 0.74 mg/dL (0.55-1.02); VANCOMYCIN,TROUGH 14.2 ug/mL (15-20)
[2018-05-05] MEDS: VANCOMYCIN HCL 500 MG VIAL 250 MG, VANCOMYCIN HCL 1 GM VIAL 1 G in NS 250 ML IV 250 ML IV SCH (06:59)
[2018-05-05] MEDS ORDERED: VANCOMYCIN HCL 500 MG VIAL ONE ×2 (07:00→14:11)
[2018-05-05] MEDS ORDERED: NS 250 ML IV 250 ML IV ONE ×2 (07:00→14:11)
[2018-05-05] MEDS ORDERED: VANCOMYCIN HCL 1 GM VIAL ONE ×2 (07:00→14:11)
[2018-05-05 07:03] LABS: ALANINE AMINOTRANSFERASE 15 Units/L (12-78); ALBUMIN 3.2 g/dL (3.4-5.0); ALKALINE PHOSPHATASE 47 Units/L (46-116); ASPARTATE AMINO TRANSFERASE 12 Units/L (15-37); BLOOD UREA NITROGEN 3 mg/dL (7-18); CALCIUM 8.3 mg/dL (8.5-10.1); CARBON DIOXIDE 26.7 mmol/L (21-32); CHLORIDE 107 mmol/L (98-107); COR CA(FOR HYPOALB) 8.9 mg/dL (8.5-10.1); CREATININE 0.76 mg/dL (0.55-1.02); SODIUM 141 mmol/L (136-145); TOTAL PROTEIN 6.4 g/dL (6.4-8.2); eGFR NON BLACK RACES > 60 (>60)
[2018-05-05] MEDS: ROCEPHIN VIAL 2 GRAMS IVP SCH (09:17)
[2018-05-05] MEDS ORDERED: ZOFRAN INJ 4 MG VIAL IVP PRN (13:39)
[2018-05-05] MEDS ORDERED: ULTRAM PO PRN (13:39)
[2018-05-05] MEDS ORDERED: VANCOMYCIN HCL 500 MG VIAL 250 MG, VANCOMYCIN HCL 1 GM VIAL 1 G in NS 250 ML IV 250 ML IV SCH (14:00)
--- NOTE | 2018-05-05 14:58 | CT ---
Indication: Chest pain Exam: CT chest with contrast. Comparison: None. Technique: Axial spiral images were obtained from the level above the clavicles through the adrenals after administration of 75 cc Omnipaque 300. Automated dose control was utilized. Findings: The thyroid gland is grossly unremarkable. The aorta and pulmonary arteries are well opacified and normal caliber with no aneurysm or dissection. There is no filling defect in the pulmonary arteries. There is no mediastinal mass or adenopathy. The adrenals are normal. The gallbladder has been removed. There are hazy ground-glass opacities along the lung bases posteriorly. No effusion is seen. There is no pulmonary nodule or mass. The bones are intact. No aggressive osseous lesion is seen. Impression: Minimal bibasilar atelectasis or early infiltrates posteriorly. Unremarkable mediastinum. Status post cholecystectomy. Reported By:
[2018-05-05] MEDS ORDERED: NS 1000 ML 1,000 ML IV SCH (19:00)
[2018-05-05] MEDS ORDERED: MILK OF MAGNESIA PO SCH (21:00)
[2018-05-05] MEDS ORDERED: COLACE CAP 100 MG PO SCH (21:00)
[2018-05-05] MEDS ORDERED: VANCOMYCIN HCL 500 MG VIAL 500 MG, VANCOMYCIN HCL 1 GM VIAL 1 G in NS 250 ML IV 250 ML IV SCH (21:00)
[2018-05-05] MEDS ORDERED: ZOFRAN TAB 4 MG SL PRN (22:38)
[2018-05-06] MEDS ORDERED: ROCEPHIN VIAL 2 GRAMS IVP SCH (09:00)
[2018-05-06 11:58] VITALS: BP 124/76
[2018-05-06] MEDS ORDERED: PHARMACY COMMENT IV NR (20:30)
== END 2018-05-06 12:30 | disposition home or self-care (01) | DRG 313 ==
LOC: ICU
PROVIDERS: ADMIT Obstetrics & Gynecology Obstetrics; ATTEND Obstetrics & Gynecology Obstetrics
CPT/HCPCS: 36415; 71010; 71045; 71260; 72146; 80053; 80202; 82550; 82553; 82565; 83605; 84484; 85025; 85652; 86140; 87040; 93005; 93010; 93306; 99221; 99231; A4222; G0378; J0696; J1170; J2405; J2550; J3370; J7030; J7050; J7060; J7120; S0181